=== PATIENT | female | born 1990 | race Hispanic/Latino ===

== ENCOUNTER 2018-05-14 22:20 | Emergency (ER) | payer OTHER ==
[2018-05-14] MEDS ORDERED: DELTASONE ONE (22:31)
[2018-05-14] MEDS ORDERED: PEPCID ONE (22:31)
[2018-05-14] MEDS ORDERED: BENADRYL PO ONE ×2 (22:32→22:40)
[2018-05-14] MEDS ORDERED: PEPCID PO ONE (22:40)
[2018-05-14] MEDS ORDERED: DELTASONE PO ONE (22:40)
[2018-05-14 23:24] VITALS: BP 118/76
--- NOTE | 2018-05-15 01:26 | Emergency Department Report ---
HPI - General Chief Complaint: Allergic Reaction Time Seen by Provider: 05/15/18 01:17 - HPI HPI: This is an allergic reaction to spider bite localized to the left dorsal foot symptoms including burning and itching swelling with shortness of breath no wheezing or lightheadedness no dizziness no nausea vomiting no chest pain ED Past Medical Hx - Past Medical History Previous Medical History?: No - Surgical History Past Surgical History?: No - Social History Smoking Status: Unknown if ever smoked Substance Use Type: None - Medications Home Medications: Home Medications Medication Instructions Recorded Confirmed Last Taken Type EPINEPHrine [Epipen 2-Sammy] 0.3 mg IM PRN #1 kit 05/15/18 Unknown Rx Metoclopramide [Reglan] 10 mg PO ACHS #28 tablet 05/15/18 Unknown Rx diphenhydrAMINE [Benadryl CAP] 25 mg PO Q6HR PRN #28 capsule 05/15/18 Unknown Rx predniSONE [Deltasone] 40 mg PO QDAY 5 Days #10 tab 05/15/18 Unknown Rx ED Review of Systems ROS: Stated complaint: INSECT BITE Other details as noted in HPI Constitutional: denies: chills, fever Eyes: denies: eye pain, eye discharge, vision change ENT: denies: ear pain, throat pain Respiratory: denies: cough, shortness of breath, wheezing Cardiovascular: denies: chest pain, palpitations Endocrine: no symptoms reported Gastrointestinal: denies: abdominal pain, nausea, diarrhea Genitourinary: denies: urgency, dysuria, discharge Musculoskeletal: denies: back pain, joint swelling, arthralgia Skin: rash (left foot and right upper arm. ). denies: lesions Neurological: denies: headache, weakness, paresthesias Psychiatric: denies: anxiety, depression Hematological/Lymphatic: denies: easy bleeding, easy bruising Physical Exam - Physical Exam Vital Signs: Vital Signs 05/14/18 22:18 Temperature 98.7 F Pulse Rate 97 H Respiratory 18 Rate Blood Pressure 118/76 O2 Sat by Pulse 98 Oximetry Physical Exam: Mild S resolved minimal erythema pruritis there is no shortness of breath no wheezing no stridor patient is a and O 3 ambulatory following by mouth intake without nausea or vomiting at this time plan DC to home with steroid burst Benadryl ED Course Vital Signs 05/14/18 22:18 Temperature 98.7 F Pulse Rate 97 H Respiratory 18 Rate Blood Pressure 118/76 O2 Sat by Pulse 98 Oximetry Critical care attestation.: If time is entered above; I have spent that time in minutes in the direct care of this critically ill patient, excluding procedure time. ED Disposition Clinical Impression: Allergic reaction Qualifiers: Encounter type: initial encounter Qualified Code(s): T78.40XA - Allergy, unspecified, initial encounter Disposition: TO HOME OR SELFCARE Is pt being admited?: No Does the pt Need Aspirin: No Condition: Good Instructions: Insect Bite or Sting (ED), Allergies (ED) Prescriptions: diphenhydrAMINE [Benadryl CAP] 25 mg PO Q6HR PRN #28 capsule PRN Reason: allergies ithcing EPINEPHrine [Epipen 2-Sammy] 0.3 mg IM PRN #1 kit Metoclopramide [Reglan] 10 mg PO ACHS #28 tablet predniSONE [Deltasone] 40 mg PO QDAY 5 Days #10 tab Referrals: PRIMARY CARE, [Primary Care Provider] - 3-5 Days Forms: Work/School Release Form(ED) Time of Disposition: 01:27
== END 2018-05-15 01:20 | disposition home or self-care (01) ==
LOC: ED 22:20
DX: T78.40XA Allergy, unspecified, initial encounter (principal); X58.XXXA Exposure to other specified factors, initial encounter
CPT/HCPCS: 99282; J7512